=== PATIENT | female | born 1940 | race Caucasian/White ===

== ENCOUNTER 2018-04-05 20:33 | Observation (INO) ==
[2018-04-05] MEDS ORDERED: traMADol 50 MG TABLET PO PRN (22:41)
[2018-04-05] MEDS ORDERED: Acetaminophen 325 MG TABLET PO PRN (22:41)
[2018-04-05] MEDS ORDERED: Naloxone 0.4 MG/ML INJ IVP PRN (22:41)
--- NOTE | 2018-04-05 23:53 | Internal Med History&Physical ---
Date of Encounter: 04/06/18 Time of Encounter: 22:50 Internal Medicine - H&P: HPI Chief complaint: Abdominal pain and bright red blood per rectum History of present illness: Ms. TOURE is a 78 year old female with pmh of hypertension, hypothyroidism presenting with complaints of left lower abdominal pain starting around 6pm last night. Patient has had this pain intermittently for a while but she says she has never had it to the severity of last night. Pain stared last night around 6pm, was dull but severe and accompanied with a lower abdominal fullness. She says she went to the bathroom this am and noticed copious amounts of bright red blood in stool which she has never experienced before. She only had that one episode of blood bowel movement. She denies any fevers, chills , nausea or vomiting. She admits to change in bowel pattern with stools being thinner intermittently. when she went to the ER, a CT scan was done showing maaslike thikening of the cecum with mild inflammatory changes, as well as an underlying mass that could not be excluded. She was given levaquin and flagyl and transferred here for further management. Last colonscopy was 5 years ago. Past Med Surg Social Fam HX - Past Medical History Medical history: hypertension - Past Surgical History Surgical History: hysterectomy, orthopedic, other - Social History Smoking Status: Never smoker Alcohol use: none Drug use: none Internal Medicine - H&P: Meds 3 Allergy/AdvReac Type Severity Reaction Status Date / Time No Known Allergies Allergy Verified 04/05/18 23:50 All Systems PM: A 10-system review of systems was performed and is negative for pertinent findings except as documented above in the HPI. - Constitutional Constitutional: no chills, no fever(s), no night sweats - EENT Eyes: no change in vision, no discharge, no pain, no photophobia Ears: no ear discharge, no ear pain, no tinnitus Nose, mouth and throat: no dysphagia, no nasal discharge, no neck pain, no sore throat - Cardiovascular Cardiovascular ROS IM: no chest pain, no diaphoresis, no dyspnea, no lightheadedness, no palpitations, no syncope - Respiratory Respiratory: no cough, no dyspnea, no wheezing, no excessive phlegm production - Gastrointestinal Gastrointestinal: abdominal pain, change in stool character, diarrhea, hematochezia, no hematemesis, no melena, no nausea, no vomiting - Genitourinary Genitourinary: no change in urinary stream, no dysuria, no flank pain, no hematuria - Musculoskeletal Musculoskeletal ROS IM: no numbness, no tingling - Integumentary Integumentary IM: no rash, no unusual bruising - Neurological Neurological ROS: no confusion, no convulsions, no focal weakness, no numbness, no tingling, no tremor(s) - Hematologic/Lymphatic Hematologic/Lymphatic: no easy bruising - Constitutional Vitals: Temp Pulse Resp BP Pulse Ox 98.2 F 70 16 134/69 95 04/05/18 22:35 04/05/18 22:35 04/05/18 22:35 04/05/18 22:35 04/05/18 22:35 - Head Head exam: Present: atraumatic, normocephalic - Eye Eye exam: Present: PERRL, conjuntiva pink, sclera anicteric Pupils: Present: PERRL - Neck Neck exam general surgery: Present: supple, trachea midline. Absent: lymphadenopathy - Respiratory Respiratory exam: Present: CTAB. Absent: accessory muscle use, rales, rhonchi, wheezes - Cardiovascular Cardiovascular exam: Present: RRR, +S1, +S2. Absent: diastolic murmur, gallop, rubs, systolic murmur - GI/Abdominal GI/Abdominal exam: Present: normal bowel sounds, soft, tenderness, no peritoneal signs. Absent: distended Additional comments: tenderness to deep palpation - Extremities Exam Extremities exam: Present: warm, radial pulses palpable and symmetrical. Absent : calf tenderness, cyanotic, pedal edema - Neurological Exam Neurological exam: Present: CN II-XII intact, oriented X3, no focal deficits. Absent: pronater drift, facial droop, speech deficit - Skin Skin exam: Present: dry, intact Internal Med - H&P Results - Labs CBC & Chem 7: 04/06/18 03:14 04/06/18 03:14 - Assessment and plan (1) Colitis Current Visit: Yes Status: Acute Assessment and plan: Pt has colitis with bright red blood per rectum. Had only one episode of BRBPR and is hemodynamically stable.Hemglobin was 12.6 in ED , will monitor CBC. Start on ciprofloxacin and flagyl. GI can be consulted in am for possible colonoscopy inpt vs outpatient and further management. Follow up stool studies (2) Colonic mass Current Visit: Yes Status: Acute Assessment and plan: Noted on CT scan. Pt also notes changes in the character of her stool intermittently with noted thin stools. Does not admit to weight loss. Plan for GI eval and colonoscopy (3) Hypertension Current Visit: Yes Status: Acute Assessment and plan: On amlodipine, losartan/HCTZ Qualifiers: Hypertension type: essential hypertension Qualified Code(s): I10 - Essential (primary) hypertension (4) Hypothyroidism Current Visit: Yes Status: Acute Assessment and plan: Continue levothyroxine Qualifiers: Qualified Code(s): E03.9 - Hypothyroidism, unspecified (5) DVT prophylaxis Current Visit: Yes Status: Acute Assessment and plan: SCDs - Time Spent With Patient Total time spent is greater than 50% in coordination of care (as documented) at patient's floor/unit and/or counseling patient:
[2018-04-06] MEDS ORDERED: MetroNIDAZOLE 500 MG/100 ML 500 MG/100 ML BAG IVPB SCH
[2018-04-06] MEDS: 0.9 % Sodium Chloride 1,000 ML IVC SCH ×3 (00:17→23:29)
[2018-04-06] MEDS: MetroNIDAZOLE 500 MG/100 ML 500 MG/100 ML BAG IVPB SCH ×3 (01:39→17:23)
[2018-04-06 04:15] LABS: Basophils % 0.2 %; Eosinophils # 0.1 K/mcL (0.0-0.6); Eosinophils % 0.7 %; Hematocrit 35.8 % (35.3-44.9); Hemoglobin 12.1 g/dL (11.5-15.4); Immature Granulocytes % 0.3 % (0-4); Lymphocytes # 1.2 K/mcL (0.6-4.6); Lymphocytes % 12.6 %; Mean Corpuscular HGB Conc 33.8 g/dL (31.6-35.5); Mean Corpuscular Hemoglobin 28.3 pg (28.0-33.3); Mean Corpuscular Volume 83.6 fL (83.0-100.0); Mean Platelet Volume 10.4 fL (9.4-12.4); Monocytes # 0.7 K/mcL (0.0-1.3); Monocytes % 7.4 %; Neutrophils # 7.8 K/mcL (1.6-8.9); Platelet Count 153 K/mcL (140-400); Red Blood Count 4.28 M/mcL (3.82-4.97); Red Cell Distribution Width 13.7 % (11.5-14.5); Segmented Neutrophils % 78.8 %
[2018-04-06 04:31] LABS: BUN/Creatinine Ratio 13 (6-26); Blood Urea Nitrogen 10 mg/dL (8-23); Calcium 8.5 mg/dL (8.6-10.3); Carbon Dioxide 25 mEq/L (23-29); Chloride 105 mEq/L (98-107); Glucose 111 mg/dL (70-105); Magnesium 1.8 mg/dL (1.6-2.6); Osmolality,Calculated 280 (280-300); Phosphorous 3.3 mg/dL (2.7-4.5); Potassium 3.4 mEq/L (3.5-5.1); Sodium 135 mEq/L (136-145); eGFR For Non-African Americans > 60 (> 60)
[2018-04-06] MEDS ORDERED: amLODIPine 5 MG TABLET PO SCH (09:00)
[2018-04-06] MEDS ORDERED: Aspirin 81 MG TAB.CHEW PO SCH (09:00)
[2018-04-06] MEDS ORDERED: hydroCHLOROthiazide 25 MG TABLET PO SCH (09:00)
--- NOTE | 2018-04-06 13:20 | Internal Med Progress Note ---
Hospitalist Progress Note - Encounter Date of Encounter: 04/06/18 Time of Encounter: 11:00 - Subjective Interval History: patient is feeling better sicne admission she reports no melena, hematochezia, N/V/D, melena sicne admission denies abdominal pain, dysuria, fever, chills. she had colonoscopy 5 years ago and was told to go back for a colonoscopy after 3 years due to polyps but she was unable to follow up due to her condition ( recently ). - Exam Vitals: Temp Pulse Resp BP Pulse Ox 98.9 F 61 15 93/56 95 04/06/18 10:20 04/06/18 10:20 04/06/18 10:20 04/06/18 10:20 04/06/18 10:20 Exam: General: Patient is alert, oriented, no acute distress, Head: atraumatic, normocephalic, Eye: normal appearance, PERRL, no scleral icterus, no conjunctival injection ENT: mucous membranes moist, normal external ear exam Neck: normal inspection, trachea midline, full ROM, no carotid bruits Chest: normal inspection, symmetric chest rise Respiratory: Good respiratory effort. Bilateral breath sounds are clear without wheezing, crackles, or rhonchi. Cardiovascular: Regular rate and rhythm. s1 and s2 No clicks, rubs, gallops, or murmors. Abdomen: Bowel sounds present normoactive x-4 quadrants. Abdomen is soft, nondistended. no Epigastric tenderness. No guarding or rebound. No organomegaly noted, musculoskeletal: Spontaneously moving all extremities. no edema, no calf tenderness Skin: warm, dry, intact. Neuro: Alert and oriented x4. Sensation light touch intact. Cranial nerves 2- 12 is intact. Not aphasic, gait is steady, rapid hand movements intact, finger- to-nose intact, Psych: Patient's affect is normal - Assessment and Plan (1) BRBPR (bright red blood per rectum) Current Visit: Yes Status: Acute Assessment and Plan: ?internal hemorrhoids vs mass vs colitis vs angiodysplasia vs diverticular continue IVF hold All Antiplatelets and NSAIDS adn anticoagulation on cipro and flagyl surgery consulted - she would like colonoscopy by Dr. Bradshaw will hold all of anti hypertensives- BP is running low CBC Q6H type and cross stat Pt-PTT-INR stat guaiac (2) Colitis Current Visit: Yes Status: Acute Assessment and Plan: Ct scan done at outside facility showing masslike thickening of the cecum with mild inflammatory changes, as well as an underlying mass that could not be excluded. started on cipro, flagyl tolerating full liquid diet - will increase diet as tolerated she would like colonoscopy to be perfomed by Dr. Bradshaw with surgery - surgery consulted will continue IV hydration (3) Colonic mass Current Visit: Yes Status: Acute Assessment and Plan: Noted on CT scan. denies weight loss or B symptoms. was due for colonscopy 2 years ago obtain previous records surgery consulted for ?colonoscopy n patient with Dr. rBadshaw (4) Hypertension Current Visit: Yes Status: Acute Assessment and Plan: held all BP meds currently border line hypotensive (5) Hypothyroidism Current Visit: Yes Status: Acute Assessment and Plan: Continue levothyroxine (6) DVT prophylaxis Current Visit: Yes Status: Acute Assessment and Plan: scds DVT Prophylaxis: as above - Time Spent with Patient Total time spent is greater than 50% in coordination of care (as documented) at patient's floor/unit and/or counseling patient: Plan of Care Discussed with: patient Internal Medicine: Result - Labs CBC & Chem 7: 04/06/18 03:14 04/06/18 03:14 Labs: Short CBC 04/06/18 Range/Units 03:14 WBC 9.9 (4.3-11.1) K/mcL Hgb 12.1 (11.5-15.4) g/dL Hct 35.8 (35.3-44.9) % Plt Count 153 (140-400) K/mcL Neutrophils # 7.8 (1.6-8.9) K/mcL BMP 04/06/18 03:14 Sodium 135 L Potassium 3.4 L Chloride 105 Carbon Dioxide 25 BUN 10 Creatinine 0.80 Glucose 111 H Calcium 8.5 L Consult Discharge Plan - Plan Referrals: Nilesh Unger MD [Primary Care Provider] - (4) Hypertension Qualifiers: Hypertension type: essential hypertension Qualified Code(s): I10 - Essential (primary) hypertension (5) Hypothyroidism Qualifiers: Qualified Code(s): E03.9 - Hypothyroidism, unspecified
[2018-04-06 13:46] LABS: Basophils % 0.3 %; Eosinophils # 0.2 K/mcL (0.0-0.6); Eosinophils % 1.6 %; Hematocrit 39.2 % (35.3-44.9); Hemoglobin 12.9 g/dL (11.5-15.4); Immature Granulocytes % 0.2 % (0-4); Lymphocytes # 1.5 K/mcL (0.6-4.6); Lymphocytes % 14.8 %; Mean Corpuscular HGB Conc 32.9 g/dL (31.6-35.5); Mean Corpuscular Hemoglobin 28.2 pg (28.0-33.3); Mean Corpuscular Volume 85.6 fL (83.0-100.0); Mean Platelet Volume 10.1 fL (9.4-12.4); Monocytes # 0.8 K/mcL (0.0-1.3); Monocytes % 7.7 %; Neutrophils # 7.4 K/mcL (1.6-8.9); Platelet Count 164 K/mcL (140-400); Red Blood Count 4.58 M/mcL (3.82-4.97); Red Cell Distribution Width 13.8 % (11.5-14.5); Segmented Neutrophils % 75.4 %
[2018-04-06] MEDS ORDERED: Polyethylene Glycol 3350 255 GM POWDER PO ONE ×2 (14:12→15:06)
--- NOTE | 2018-04-06 14:16 | General Surgery Consult Note ---
<Nichelle Ibarra E - Last Filed: 04/06/18 14:13> Date of Encounter: 04/06/18 Time of Encounter: 14:14 Assessment and Plan (1) Colonic mass Current Visit: Yes Status: Acute Colonoscopy tomorrow morning for concerning mass in right colon Bowel prep starting tonight Clear liquid diet, NPO after midnight Monitor CBC, CMP for anemia CEA and PT/INT ordered Chest XR two view ordered Continue antibiotics as per primary (2) BRBPR (bright red blood per rectum) Current Visit: Yes Status: Acute see above History of Present Illness Consult date: 04/06/18 Reason for consult: other (Pt has had bright red blood per rectum since yesterday morning) Requesting physician: Jessica Haywood History of present illness: Ms. Sibley is an 78 year old female who presented to the ED for bright red blood per rectum. She states that yesterday morning she had a "whoosh" of bright red blood when she went to have a bowel movement. She was quite concerned about it. She has noticed a change in her stool consistency over the last two years that she describes as she has a normal bowel movement and then the caliper of the stool changes to thin and then it is followed by clear water like diarrhea that has fibers in it. She states she does not have any pain today but is aware of something that just does not feel right. She did have a slight cramping sensation yesterday morning before her bowel movement in her pelvis that she described as a dull aching type pain. Past Med Surg Social Fam HX - Past Medical History Medical history: hypertension - Past Surgical History Surgical History: hysterectomy, orthopedic, other - Social History Smoking Status: Never smoker Alcohol use: none Drug use: none Medications and Allergies Alendronate Sodium [Fosamax] 70 mg PO QWEEK 04/06/18 [History] Aspirin Enteric Coated [Aspirin EC] 81 mg PO DAILY 04/06/18 [History] Atenolol [Tenormin] 50 mg PO DAILY 04/06/18 [History] Levothyroxine [Synthroid] 125 mcg PO DAILY 04/06/18 [History] Losartan/Hydrochlorothiazide [Losartan-Hctz 100-12.5 mg Tab] 1 tab PO DAILY 12/19 [History] [place]-3 Fatty Acids [Fish Oil] 300 mg PO DAILY 04/06/18 [History] amLODIPine [Norvasc] 5 mg PO DAILY 04/06/18 [History] 3 Allergy/AdvReac Type Severity Reaction Status Date / Time No Known Allergies Allergy Verified 04/06/18 10:23 Review of Systems All systems PM: The remainder of the systems were reviewed and are negative - Cardiovascular no chest pain, no dyspnea, no palpitations - Respiratory no cough, no dyspnea, no dyspnea on exertion - Gastrointestinal as per [facility] General Surgery Exam Initial Vital Signs Temp Pulse Resp BP Pulse Ox 98.2 F 70 16 134/69 95 04/05/18 22:35 04/05/18 22:35 04/05/18 22:35 04/05/18 22:35 04/05/18 22:35 - General physical appearance well developed, well nourished - Respiratory normal expansion, normal respiratory effort, clear to auscultation - Cardiovascular Cardiovascular exam: Present: RRR, no murmurs/rubs/gallops - Abdomen Abdomen general surgery: Present: bowel sounds present, soft, non tender. Absent: organomegaly, guarding, rebound - Psychiatric Psychiatric general surgery: Present: A&Ox3 Exam Initial Vital Signs Temp Pulse Resp BP Pulse Ox 98.2 F 70 16 134/69 95 04/05/18 22:35 04/05/18 22:35 04/05/18 22:35 04/05/18 22:35 04/05/18 22:35 Results - Labs 04/06/18 13:38 04/06/18 03:14 Abnormal lab results Sodium 135 mEq/L (136-145) L 04/06/18 03:14 Potassium 3.4 mEq/L (3.5-5.1) L 04/06/18 03:14 Glucose 111 mg/dL (70-105) H 04/06/18 03:14 Calcium 8.5 mg/dL (8.6-10.3) L 04/06/18 03:14 Diabetes panel 04/06/18 Range/Units 03:14 Sodium 135 L (136-145) mEq/L Potassium 3.4 L (3.5-5.1) mEq/L Chloride 105 (98-107) mEq/L Carbon Dioxide 25 (23-29) mEq/L BUN 10 (8-23) mg/dL Creatinine 0.80 (0.60-1.20) mg/dL Glucose 111 H (70-105) mg/dL Calcium 8.5 L (8.6-10.3) mg/dL Calcium panel 04/06/18 Range/Units 03:14 Calcium 8.5 L (8.6-10.3) mg/dL Phosphorus 3.3 (2.7-4.5) mg/dL Pituitary panel 04/06/18 Range/Units 03:14 Sodium 135 L (136-145) mEq/L Potassium 3.4 L (3.5-5.1) mEq/L Chloride 105 (98-107) mEq/L Carbon Dioxide 25 (23-29) mEq/L BUN 10 (8-23) mg/dL Creatinine 0.80 (0.60-1.20) mg/dL Glucose 111 H (70-105) mg/dL Calcium 8.5 L (8.6-10.3) mg/dL Adrenal panel 04/06/18 Range/Units 03:14 Sodium 135 L (136-145) mEq/L Potassium 3.4 L (3.5-5.1) mEq/L Chloride 105 (98-107) mEq/L Carbon Dioxide 25 (23-29) mEq/L BUN 10 (8-23) mg/dL Creatinine 0.80 (0.60-1.20) mg/dL Glucose 111 H (70-105) mg/dL Calcium 8.5 L (8.6-10.3) mg/dL All other labs normal. Consult Discharge Plan - Plan Referrals: Nilesh Unger MD [Primary Care Provider] - <Jame Rhodes - Last Filed: 04/06/18 15:17> Date of Encounter: 04/06/18 Review of Systems All systems PM: The remainder of the systems were reviewed and are negative General Surgery Exam Initial Vital Signs Temp Pulse Resp BP Pulse Ox 98.2 F 70 16 134/69 95 04/05/18 22:35 04/05/18 22:35 04/05/18 22:35 04/05/18 22:35 04/05/18 22:35 Exam Initial Vital Signs Temp Pulse Resp BP Pulse Ox 98.2 F 70 16 134/69 95 04/05/18 22:35 04/05/18 22:35 04/05/18 22:35 04/05/18 22:35 04/05/18 22:35 Results - Labs 04/06/18 13:38 04/06/18 03:14 Abnormal lab results PT 13.2 Seconds (9.4-12.1) H 04/06/18 14:25 Sodium 135 mEq/L (136-145) L 04/06/18 03:14 Potassium 3.4 mEq/L (3.5-5.1) L 04/06/18 03:14 Glucose 111 mg/dL (70-105) H 04/06/18 03:14 Calcium 8.5 mg/dL (8.6-10.3) L 04/06/18 03:14 Diabetes panel 04/06/18 Range/Units 03:14 Sodium 135 L (136-145) mEq/L Potassium 3.4 L (3.5-5.1) mEq/L Chloride 105 (98-107) mEq/L Carbon Dioxide 25 (23-29) mEq/L BUN 10 (8-23) mg/dL Creatinine 0.80 (0.60-1.20) mg/dL Glucose 111 H (70-105) mg/dL Calcium 8.5 L (8.6-10.3) mg/dL Calcium panel 04/06/18 Range/Units 03:14 Calcium 8.5 L (8.6-10.3) mg/dL Phosphorus 3.3 (2.7-4.5) mg/dL Pituitary panel 04/06/18 Range/Units 03:14 Sodium 135 L (136-145) mEq/L Potassium 3.4 L (3.5-5.1) mEq/L Chloride 105 (98-107) mEq/L Carbon Dioxide 25 (23-29) mEq/L BUN 10 (8-23) mg/dL Creatinine 0.80 (0.60-1.20) mg/dL Glucose 111 H (70-105) mg/dL Calcium 8.5 L (8.6-10.3) mg/dL Adrenal panel 04/06/18 Range/Units 03:14 Sodium 135 L (136-145) mEq/L Potassium 3.4 L (3.5-5.1) mEq/L Chloride 105 (98-107) mEq/L Carbon Dioxide 25 (23-29) mEq/L BUN 10 (8-23) mg/dL Creatinine 0.80 (0.60-1.20) mg/dL Glucose 111 H (70-105) mg/dL Calcium 8.5 L (8.6-10.3) mg/dL All other labs normal. - Attending Attestation patient seen and examined. i have reviewed all imaging, labs,and notes. I agree with the above assessment and plan and wish to add the following... 78F wit 2 day history of rectal bleeding and a several year history of change in bowel habits (both in calliber and character). A CT scan was obtained which was reviewed and interpreted by me, which demonstrated a nebulus irregularity in the right colon with associated fat stranding. Her history is consistent with a strong possibility of colon cancer. I will plan for a colonoscopy in AM with plans for biopsy to confirm the findings and my suspicions. Discussed with patient and her son. No need for antibiotics at present. Recommend CEA
[2018-04-06 14:52] LABS: INR 1.2; Prothrombin Time 13.2 Seconds (9.4-12.1)
[2018-04-06 14:55] LABS: Activated Partial Thrombo Time 33.6 Seconds (26.0-36.0)
[2018-04-06 19:15] LABS: Basophils % 0.3 %; Eosinophils # 0.2 K/mcL (0.0-0.6); Eosinophils % 2.4 %; Hematocrit 36.4 % (35.3-44.9); Hemoglobin 12.3 g/dL (11.5-15.4); Immature Granulocytes % 0.3 % (0-4); Lymphocytes # 1.3 K/mcL (0.6-4.6); Lymphocytes % 14.5 %; Mean Corpuscular HGB Conc 33.8 g/dL (31.6-35.5); Mean Corpuscular Hemoglobin 28.5 pg (28.0-33.3); Mean Corpuscular Volume 84.3 fL (83.0-100.0); Mean Platelet Volume 10.2 fL (9.4-12.4); Monocytes # 0.8 K/mcL (0.0-1.3); Monocytes % 9.4 %; Neutrophils # 6.4 K/mcL (1.6-8.9); Platelet Count 168 K/mcL (140-400); Red Blood Count 4.32 M/mcL (3.82-4.97); Red Cell Distribution Width 13.7 % (11.5-14.5); Segmented Neutrophils % 73.1 %
[2018-04-06 19:35] LABS: Adenovirus F 40/41 PCR Not detected (Not detect); Astrovirus PCR Not detected (Not detect); C.difficile Toxin A/B by PCR Not detected (Not detect); Campylobacter by PCR Not detected (Not detect); Cryptosporidium by PCR Not detected (Not detect); Cyclospora cayetanensis PCR Not detected (Not detect); E. coli O157 by PCR Not detected (Not detect); Entamoeba histolytica PCR Not detected (Not detect); Enteroaggregative E.coli(EAEC) Not detected (Not detect); Enteropathogenic E.coli(EPEC) Not detected (Not detect); Enterotoxigenic E.coli (ETEC) Not detected (Not detect); Giardia lamblia PCR Not detected (Not detect); Norovirus GI/GII PCR Not detected (Not detect); Plesiomonas shigelloides PCR Not detected (Not detect); Rotavirus A PCR Not detected (Not detect); Salmonella PCR Not detected (Not detect); Sapovirus PCR Not detected (Not detect); Shig/EnteroinvasiveE coli EIEC Not detected (Not detect); Shigalike tox-prod E coli STEC Not detected (Not detect); Vibrio PCR Not detected (Not detect); Vibrio cholerae PCR Not detected (Not detect); Yersinia enterocolitica PCR Not detected (Not detect)
[2018-04-06] MEDS ORDERED: Metoclopramide 10 MG/2 ML VIAL IVP PRN (20:27)
[2018-04-07] MEDS: MetroNIDAZOLE 500 MG/100 ML 500 MG/100 ML BAG IVPB SCH ×3 (01:25→17:20)
[2018-04-07] MEDS: 0.9 % Sodium Chloride 1,000 ML IVC SCH ×2 (05:22→20:05)
[2018-04-07 05:44] LABS: BUN/Creatinine Ratio 7 (6-26); Blood Urea Nitrogen 5 mg/dL (8-23); Calcium 8.1 mg/dL (8.6-10.3); Carbon Dioxide 24 mEq/L (23-29); Chloride 109 mEq/L (98-107); Glucose 112 mg/dL (70-105); Osmolality,Calculated 284 (280-300); Potassium 3.2 mEq/L (3.5-5.1); Sodium 138 mEq/L (136-145); eGFR For Non-African Americans > 60 (> 60)
[2018-04-07 07:12] LABS: Basophils % 0.5 %; Eosinophils # 0.2 K/mcL (0.0-0.6); Eosinophils % 3.6 %; Hematocrit 34.8 % (35.3-44.9); Hemoglobin 11.6 g/dL (11.5-15.4); Immature Granulocytes % 0.4 % (0-4); Lymphocytes # 0.9 K/mcL (0.6-4.6); Lymphocytes % 16.5 %; Mean Corpuscular HGB Conc 33.3 g/dL (31.6-35.5); Mean Corpuscular Hemoglobin 28.2 pg (28.0-33.3); Mean Corpuscular Volume 84.5 fL (83.0-100.0); Mean Platelet Volume 10.7 fL (9.4-12.4); Monocytes # 0.5 K/mcL (0.0-1.3); Platelet Count 136 K/mcL (140-400); Red Blood Count 4.12 M/mcL (3.82-4.97); Red Cell Distribution Width 13.5 % (11.5-14.5)
[2018-04-07] MEDS ORDERED: *HR* Midazolam HCl 5 MG/5 ML VIAL IVP ONE (07:53)
[2018-04-07] MEDS ORDERED: *HR* FentaNYL (PF) 100 MCG/2 ML VIAL ONE (07:53)
[2018-04-07] MEDS ORDERED: 0.9 % Sodium Chloride 1,000 ML IVC SCH (08:00)
[2018-04-07] MEDS ORDERED: Simethicone 40 MG/0.6 ML MLS IR ONE (08:01)
[2018-04-07] MEDS ORDERED: *HR* FentaNYL (PF) 100 MCG/2 ML VIAL IVP ONE (08:01)
[2018-04-07] MEDS ORDERED: *HR* Promethazine 25 MG/ML VIAL IVP ONE (08:01)
--- NOTE | 2018-04-07 08:01 | Pre-Sedation Evaluation ---
Pre-sedation evaluation - Pre-sedation checklist Date of procedure: 04/07/18 Procedure: EGD, colonoscopy Recent Vitals: Last Vital Signs Temp 98.3 F 04/07/18 07:57 Pulse 81 04/07/18 06:49 Resp 16 04/07/18 06:49 BP 106/81 04/07/18 06:49 Pulse Ox 95 04/07/18 06:49 H&P (including ROS) documented in medical record: Yes Dietary Status: NPO after Midnight Possible difficult airway: No ASA Classification *see protocol: CLASS II-Mild systemic disease Plan of Care: Pt appropriate candidate for procedure/moderate/conscious sedation , Risks/benefits of procedure/sedation discussed w/ patient/family Cardiac Registry (Cardio Only) - Functional Capacity - Clincal Frailty Scale
[2018-04-07] MEDS: *HR* Midazolam HCl 5 MG/5 ML VIAL IVP ONE ×3 (08:06→08:38)
[2018-04-07] MEDS ORDERED: Tetracaine/Benzocaine/Butamben 200MG/SPRAY (100SPY/BOT) MM ONE (08:14)
--- NOTE | 2018-04-07 11:52 | General Surgery Progress Note ---
Date of Encounter: 04/07/18 Time of Encounter: 11:49 - Assessment and Plan (1) BRBPR (bright red blood per rectum) Current Visit: Yes Status: Acute 78F with LGIB s/p EGD, colonoscopy; positive for diverticulosis; possible ischemia; diet as tolerated activity as tolerated trend h/h no acute surgery at present, unless clinical status begins to decline will cont to follow Subjective Patient reports: no new complaints Objective Vital Signs - Last 8 Hours Temp Pulse Resp BP Pulse Ox 04/07/18 10:25 98.1 F 75 15 103/61 95 04/07/18 09:01 90 22 106/58 96 04/07/18 08:56 89 14 112/52 95 04/07/18 08:51 96 12 122/71 96 04/07/18 08:46 99 9 130/89 94 04/07/18 08:41 95 21 120/61 96 04/07/18 08:36 96 10 115/58 96 04/07/18 08:31 96 18 125/76 96 04/07/18 08:26 113 14 145/74 91 04/07/18 08:21 107 16 139/78 90 04/07/18 08:16 105 14 151/80 89 04/07/18 08:11 99 20 162/89 90 04/07/18 08:06 81 18 125/58 95 04/07/18 07:57 98.3 F 70 16 126/56 96 04/07/18 06:49 98.1 F 81 16 106/81 95 Intake and Output 04/06/18 04/07/18 04/07/18 23:59 07:59 15:59 Intake Total 300 / 300 1100 / 1100 60 / 60 Output Total 700 / 700 0 / 0 100 / 100 Balance -400 / -400 1100 / 1100 -40 / -40 Intake: IV Fluids 300 / 300 1100 / 1100 0.9 % Sodium Chloride 1,000 ML 1000 / 1000 @ 100 mls/hr IVC .Q10H ANGIE Rx#: [id number] Cipro Premix 400 MG/200 ML 400 200 / 200 mg In 200 ml @ 200 mls/hr IVPB Q12HR ANGIE Rx#:[id number] Flagyl Premix 500 MG/100 ML 500 100 / 100 100 / 100 mg In 100 ml @ 100 mls/hr IVPB Q8H ANGIE Rx#:[id number] Oral 0 / 0 0 / 0 60 / 60 Output: Urine 0 / 0 0 / 0 100 / 100 Stool 700 / 700 Other: Meal NPO BREAKFAST Stool Size Large Moderate Stool Consistency liquid loose liquid Stool Color Yellow # Voids 1 # Bowel Movements 0 # Bowel Movement Diapers 1 Blood Glucose* 134 - General physical appearance no distress - Respiratory normal expansion, normal respiratory effort - Cardiovascular Cardiovascular exam: Present: RRR - Abdomen Abdomen: Present: soft, non tender - Neurologic CN 2-12 grossly intact - Labs 04/07/18 04:40 04/07/18 04:40 Diabetes panel 04/07/18 Range/Units 04:40 Sodium 138 (136-145) mEq/L Potassium 3.2 L (3.5-5.1) mEq/L Chloride 109 H (98-107) mEq/L Carbon Dioxide 24 (23-29) mEq/L BUN 5 L (8-23) mg/dL Creatinine 0.69 (0.60-1.20) mg/dL Glucose 112 H (70-105) mg/dL Calcium 8.1 L (8.6-10.3) mg/dL Calcium panel 04/07/18 Range/Units 04:40 Calcium 8.1 L (8.6-10.3) mg/dL Pituitary panel 04/07/18 Range/Units 04:40 Sodium 138 (136-145) mEq/L Potassium 3.2 L (3.5-5.1) mEq/L Chloride 109 H (98-107) mEq/L Carbon Dioxide 24 (23-29) mEq/L BUN 5 L (8-23) mg/dL Creatinine 0.69 (0.60-1.20) mg/dL Glucose 112 H (70-105) mg/dL Calcium 8.1 L (8.6-10.3) mg/dL Adrenal panel 04/07/18 Range/Units 04:40 Sodium 138 (136-145) mEq/L Potassium 3.2 L (3.5-5.1) mEq/L Chloride 109 H (98-107) mEq/L Carbon Dioxide 24 (23-29) mEq/L BUN 5 L (8-23) mg/dL Creatinine 0.69 (0.60-1.20) mg/dL Glucose 112 H (70-105) mg/dL Calcium 8.1 L (8.6-10.3) mg/dL - VTE Documentation of Mechanical Device: Intermittent pneumatic compression device Consult Discharge Plan - Plan Referrals: Nilesh Unger MD [Primary Care Provider] -
--- NOTE | 2018-04-07 15:49 | Internal Med Progress Note ---
Hospitalist Progress Note - Encounter Date of Encounter: 04/07/18 Time of Encounter: 11:00 - Subjective Interval History: s/p colonoscopy adn feels drowsy tolerated clear liquid diet increased diet to full liquids she reports no melena, hematochezia, N/V/D, melena since admission denies abdominal pain, dysuria, fever, chills. - Exam Vitals: Temp Pulse Resp BP Pulse Ox 97.5 F L 72 15 117/69 97 04/07/18 14:38 04/07/18 14:38 04/07/18 14:38 04/07/18 14:38 04/07/18 14:38 Exam: General: Patient is alert, oriented, no acute distress, Head: atraumatic, normocephalic, Eye: normal appearance, PERRL, no scleral icterus, no conjunctival injection ENT: mucous membranes moist, normal external ear exam Neck: normal inspection, trachea midline, full ROM, no carotid bruits Chest: normal inspection, symmetric chest rise Respiratory: Good respiratory effort. Bilateral breath sounds are clear without wheezing, crackles, or rhonchi. Cardiovascular: Regular rate and rhythm. s1 and s2 No clicks, rubs, gallops, or murmors. Abdomen: Bowel sounds present normoactive x-4 quadrants. Abdomen is soft, nondistended. no Epigastric tenderness. No guarding or rebound. No organomegaly noted, musculoskeletal: Spontaneously moving all extremities. no edema, no calf tenderness Skin: warm, dry, intact. Neuro: Alert and oriented x4. Sensation light touch intact. Cranial nerves 2- 12 is intact. Not aphasic, gait is steady, rapid hand movements intact, finger- to-nose intact, Psych: Patient's affect is normal - Assessment and Plan (1) BRBPR (bright red blood per rectum) Current Visit: Yes Status: Acute Assessment and Plan: s/p colonoscopy positive for diverticulosis; possible ischemia hold All Antiplatelets and NSAIDS and anticoagulation was on cipro and flagyl- will consider to Dc if she remains afebrile surgery consulted - she would like colonoscopy by Dr. Bradshaw will hold all of anti hypertensives- BP is running low CBC daily (2) Colitis Current Visit: Yes Status: Acute Assessment and Plan: Ct scan done at outside facility showing mass like thickening of the cecum with mild inflammatory changes, as well as an underlying mass that could not be excluded. started on cipro, flagyl colonoscopy ? ischemia (3) Hypertension Current Visit: Yes Status: Acute Assessment and Plan: held all BP meds currently border line hypotensive (4) Hypothyroidism Current Visit: Yes Status: Acute Assessment and Plan: Continue levothyroxine (5) DVT prophylaxis Current Visit: Yes Status: Acute Assessment and Plan: scds DVT Prophylaxis: scds - Time Spent with Patient Total time spent is greater than 50% in coordination of care (as documented) at patient's floor/unit and/or counseling patient: 25 - 35 minutes Plan of Care Discussed with: patient Internal Medicine: Result - Labs CBC & Chem 7: 04/07/18 04:40 04/07/18 04:40 Labs: Short CBC 04/06/18 04/07/18 Range/Units 18:57 04:40 WBC 8.8 5.6 (4.3-11.1) K/mcL Hgb 12.3 11.6 (11.5-15.4) g/dL Hct 36.4 34.8 L (35.3-44.9) % Plt Count 168 136 L (140-400) K/mcL Neutrophils # 6.4 4.0 (1.6-8.9) K/mcL BMP 04/07/18 04:40 Sodium 138 Potassium 3.2 L Chloride 109 H Carbon Dioxide 24 BUN 5 L Creatinine 0.69 Glucose 112 H Calcium 8.1 L - ABG Interpretation ABG results: PT/INR, D-dimer PT 13.2 Seconds (9.4-12.1) H 04/06/18 14:25 - Impressions Impressions Chest X-Ray 04/06/18 14:28 IMPRESSION: No acute cardiopulmonary disease. D/ / 04/06/2018 15:22:55 Staci Ireland MD / [facility] Interpreting Provider: Staci Ireland MD - VTE Documentation of Mechanical Device: Intermittent pneumatic compression device Consult Discharge Plan - Plan Referrals: Nilesh Unger MD [Primary Care Provider] - (3) Hypertension Qualifiers: Hypertension type: essential hypertension Qualified Code(s): I10 - Essential (primary) hypertension
--- NOTE | 2018-04-07 16:21 | Discharge Summary ---
- NOTES TO OUTPATIENT PROVIDER Notes to Outpatient Provider: on pathology report from the colonoscopy. follow up with GI as OP Orders not resulted at time of discharge: Pending orders 04/07/18 09:05 Surgical Pathology [PTH] Routine 04/08/18 04:00 BMP [Basic Metabolic Panel] AM 0400 CBC [Complete Blood Count] [HEME] AM 0400 Date of Encounter: 04/08/18 Time of Encounter: 08:19 - Discharge Diagnosis (1) BRBPR (bright red blood per rectum) Priority: Primary Status: Acute (2) Colitis Priority: Secondary Status: Acute (3) Hypertension Priority: Secondary Status: Acute Qualifiers: Hypertension type: essential hypertension Qualified Code(s): I10 - Essential (primary) hypertension (4) Hypothyroidism Priority: Secondary Status: Acute Qualifiers: Hypothyroidism type: acquired Qualified Code(s): E03.9 - Hypothyroidism, unspecified (5) DVT prophylaxis Priority: Secondary Status: Acute Hospital course: Ms. TOURE is a 78 year old female who presented to the ED for bright red blood per rectum. She states that the day before admission morning she had a "whoosh" of bright red blood when she went to have a bowel movement. she visited ED in an outside facility and CT scan was done showing masslike thickening of the cecum with mild inflammatory changes, as well as an underlying mass that could not be excluded. Her last colonoscopy was 5 years ago and she was told to have repeated colonoscopy after 3 years but due to her 's condition she was unable to follow-up for colonoscopy. H/h followed and remained stable. She was started on IV fluids, IV antibiotics, surgery was consulted and she is status post colonoscopy on April 07. colonoscopy showed one 6 mm polyp in the sigmoid colon, removed with cold snare and biopsied. Diverticulosis in the sigmoid colon. psuedomembranous enterocolitis. Localized mild inflammation was found in the cecum secondary to colitis which was biopsied. Mild diverticulosis in the sigmoid colon. There was no evidence of diverticular bleeding. One 6 mm nonbleeding polyp in the sigmoid colon, removed and biopsied. endoscopy showed normal esophagus stomach and examined duodenum. She was started on clear liquid diets and she tolerated so diet was increased. she was told to follow up on the pathology reports. - Time Spent with Patient Total time spent providing and/or coordinating discharge services: Less than 30 minutes - Discharge Medications Prescriptions: Ciprofloxacin [Cipro] 500 mg PO BID 6 Days #12 tablet MetroNIDAZOLE [Flagyl ER] 750 mg PO BID 6 Days #12 tablet.er Home Medications: Alendronate Sodium [Fosamax] 70 mg PO QWEEK 04/06/18 [History] Aspirin Enteric Coated [Aspirin EC] 81 mg PO DAILY 04/06/18 [History] Atenolol [Tenormin] 50 mg PO DAILY 04/06/18 [History] Levothyroxine [Synthroid] 125 mcg PO DAILY 04/06/18 [History] Losartan/Hydrochlorothiazide [Losartan-Hctz 100-12.5 mg Tab] 1 tab PO DAILY 12/19 [History] [place]-3 Fatty Acids [Fish Oil] 300 mg PO DAILY 04/06/18 [History] amLODIPine [Norvasc] 5 mg PO DAILY 04/06/18 [History] Ciprofloxacin [Cipro] 500 mg PO BID 6 Days #12 tablet 04/08/18 [Rx] MetroNIDAZOLE [Flagyl ER] 750 mg PO BID 6 Days #12 tablet.er 04/08/18 [Rx] Allergies/Adverse Reactions: 3 Allergy/AdvReac Type Severity Reaction Status Date / Time No Known Allergies Allergy Verified 04/06/18 10:23 Date of admission: 04/05/18 22:41 Primary care physician: Nilesh Unger MD Consults: 04/06/18 13:10 Consult to Surgery [CONS] Routine Consulting Provider: Surgery [facility] Reason for Consult: BRBPR, Ct showoing mass in cecum Call Completed: Yes - Constitutional Vitals: Temp Pulse Resp BP Pulse Ox 97.5 F L 72 15 117/69 97 04/07/18 14:38 04/07/18 14:38 04/07/18 14:38 04/07/18 14:38 04/07/18 14:38 Exam: General: Patient is alert, oriented, no acute distress, Head: atraumatic, normocephalic, Eye: normal appearance, PERRL, no scleral icterus, no conjunctival injection ENT: mucous membranes moist, normal external ear exam Neck: normal inspection, trachea midline, full ROM, no carotid bruits Chest: normal inspection, symmetric chest rise Respiratory: Good respiratory effort. Bilateral breath sounds are clear without wheezing, crackles, or rhonchi. Cardiovascular: Regular rate and rhythm. s1 and s2 No clicks, rubs, gallops, or murmors. Abdomen: Bowel sounds present normoactive x-4 quadrants. Abdomen is soft, nondistended. no Epigastric tenderness. No guarding or rebound. No organomegaly noted, musculoskeletal: Spontaneously moving all extremities. no edema, no calf tenderness Skin: warm, dry, intact. Neuro: Alert and oriented x4. Sensation light touch intact. Cranial nerves 2- 12 is intact. Not aphasic, gait is steady, rapid hand movements intact, finger- to-nose intact, Psych: Patient's affect is normal - Patient Status Disposition: Home, Self-Care Condition: Fair Overall status at discharge: patient is progressing back to baseline - Discharge Instructions Follow Up With: Nilesh Unger MD [Primary Care Provider] - Selvin Monroy DO [Partnered Physician] - - Diet and Activity Activity: increase activity as tolerated Diet: advance to your usual diet - VTE Documentation of Mechanical Device: Intermittent pneumatic compression device
[2018-04-08] MEDS: MetroNIDAZOLE 500 MG/100 ML 500 MG/100 ML BAG IVPB SCH (02:09)
[2018-04-08 04:12] LABS: Basophils % 0.4 %; Eosinophils # 0.2 K/mcL (0.0-0.6); Eosinophils % 4.4 %; Hematocrit 32.5 % (35.3-44.9); Hemoglobin 10.8 g/dL (11.5-15.4); Immature Granulocytes % 0.2 % (0-4); Lymphocytes % 18.2 %; Mean Corpuscular HGB Conc 33.2 g/dL (31.6-35.5); Mean Corpuscular Hemoglobin 27.7 pg (28.0-33.3); Mean Corpuscular Volume 83.3 fL (83.0-100.0); Mean Platelet Volume 10.2 fL (9.4-12.4); Monocytes # 0.5 K/mcL (0.0-1.3); Monocytes % 8.7 %; Neutrophils # 3.6 K/mcL (1.6-8.9); Platelet Count 148 K/mcL (140-400); Red Cell Distribution Width 13.8 % (11.5-14.5); Segmented Neutrophils % 68.1 %
[2018-04-08 04:34] LABS: BUN/Creatinine Ratio 5 (6-26); Blood Urea Nitrogen 3 mg/dL (8-23); Calcium 7.8 mg/dL (8.6-10.3); Carbon Dioxide 25 mEq/L (23-29); Chloride 110 mEq/L (98-107); Glucose 109 mg/dL (70-105); Osmolality,Calculated 283 (280-300); Potassium 3.7 mEq/L (3.5-5.1); Sodium 138 mEq/L (136-145); eGFR For Non-African Americans > 60 (> 60)
[2018-04-08 07:37] VITALS: BP 145/67
--- NOTE | 2018-04-08 08:29 | General Surgery Progress Note ---
<Nichelle Ibarra E - Last Filed: 04/08/18 08:23> Date of Encounter: 04/08/18 Time of Encounter: 08:23 - Assessment and Plan (1) Colonic mass Current Visit: Yes Status: Acute Endoscopy 04/07/18 Dr. Rhodes Impression: normal esophagus Normal stomach normal examined duodenum No specimens collected Colonoscopy 04/07/18 Dr. Rhodes Impression: One 6mm polyp in sigmoid colon, removed with a cold snare. Resected and retrieved Diverticulitis in the sigmoid colon Psuedomembranous enterocolitis Localized mild inflammation was found in phylicia cecum secondary to collitis. Biopsied. Milld diverticulosis in the sigmoid colon. There was no evidence of diverticular bleeding Advance diet as tolerated Follow up on Pathology as Outpatient Ok to discharge at this time Surgery will sign off at this time, thank you for involving us in this patient' s care, please feel free to contact us with any questions. (2) BRBPR (bright red blood per rectum) Current Visit: Yes Status: Acute see above Subjective Patient reports: feels better, pain is less, tolerating a regular diet, other ( Stated she is feeling much better but has a sore throat after endoscopy yesterday. Had a small amount of lose stool this morning. ) Objective Vital Signs - Last 8 Hours Temp Pulse Resp BP Pulse Ox 04/08/18 07:25 98.6 F 81 16 145/67 96 04/08/18 04:12 98.3 F 90 17 112/54 94 Intake and Output 04/07/18 04/08/18 04/08/18 23:59 07:59 15:59 Intake Total 874 / 874 200 / 200 Output Total 300 / 300 900 / 900 Balance 574 / 574 -700 / -700 Intake: IV Fluids 874 / 874 0.9 % Sodium Chloride 1,000 ML 574 / 574 @ 100 mls/hr IVC .Q10H ANGIE Rx#: [id number] Cipro Premix 400 MG/200 ML 400 200 / 200 mg In 200 ml @ 200 mls/hr IVPB Q12HR ANGIE Rx#:[id number] Flagyl Premix 500 MG/100 ML 500 100 / 100 mg In 100 ml @ 100 mls/hr IVPB Q8H ANGIE Rx#:[id number] Oral 0 / 0 200 / 200 Output: Urine 900 / 900 Urine/Stool Mix 300 / 300 Other: # Bowel Movements 0 Weight 73 kg Patient Weight 04/08/18 23:59 Weight 73 kg - General physical appearance well developed, well nourished, no distress - Respiratory normal expansion, normal respiratory effort, clear to auscultation - Cardiovascular Cardiovascular exam: Present: RRR, no murmurs/rubs/gallops - Abdomen Abdomen: Present: bowel sounds present, soft, non tender - Integumentary no rash, no growths, no abnormal pigmentation - Musculoskeletal normal posture - Psychiatric oriented to time, oriented to person, oriented to place - Labs 04/08/18 03:45 04/08/18 03:45 Diabetes panel 04/08/18 Range/Units 03:45 Sodium 138 (136-145) mEq/L Potassium 3.7 (3.5-5.1) mEq/L Chloride 110 H (98-107) mEq/L Carbon Dioxide 25 (23-29) mEq/L BUN 3 L (8-23) mg/dL Creatinine 0.64 (0.60-1.20) mg/dL Glucose 109 H (70-105) mg/dL Calcium 7.8 L (8.6-10.3) mg/dL Calcium panel 04/08/18 Range/Units 03:45 Calcium 7.8 L (8.6-10.3) mg/dL Pituitary panel 04/08/18 Range/Units 03:45 Sodium 138 (136-145) mEq/L Potassium 3.7 (3.5-5.1) mEq/L Chloride 110 H (98-107) mEq/L Carbon Dioxide 25 (23-29) mEq/L BUN 3 L (8-23) mg/dL Creatinine 0.64 (0.60-1.20) mg/dL Glucose 109 H (70-105) mg/dL Calcium 7.8 L (8.6-10.3) mg/dL Adrenal panel 04/08/18 Range/Units 03:45 Sodium 138 (136-145) mEq/L Potassium 3.7 (3.5-5.1) mEq/L Chloride 110 H (98-107) mEq/L Carbon Dioxide 25 (23-29) mEq/L BUN 3 L (8-23) mg/dL Creatinine 0.64 (0.60-1.20) mg/dL Glucose 109 H (70-105) mg/dL Calcium 7.8 L (8.6-10.3) mg/dL - VTE Documentation of Mechanical Device: Intermittent pneumatic compression device Consult Discharge Plan - Plan Referrals: Nilesh Unger MD [Primary Care Provider] - 04/12/18 11:30 am Jarrett Hansen MD [Partnered Physician] - (Spoke with Ashley at Dr. Hansen's office will call patient back with follow up appointment once she talks to Dr. Hansen. ) Prescriptions: Ciprofloxacin [Cipro] 500 mg PO BID 6 Days #12 tablet MetroNIDAZOLE [Flagyl ER] 750 mg PO BID 6 Days #12 tablet.er <Jame Rhodes Mile - Last Filed: 04/08/18 09:29> Date of Encounter: 04/08/18 - Assessment and Plan (1) BRBPR (bright red blood per rectum) Current Visit: Yes Status: Acute Objective Vital Signs - Last 8 Hours Temp Pulse Resp BP Pulse Ox 04/08/18 07:25 98.6 F 81 16 145/67 96 04/08/18 04:12 98.3 F 90 17 112/54 94 Intake and Output 04/07/18 04/08/18 04/08/18 23:59 07:59 15:59 Intake Total 874 / 874 200 / 200 Output Total 300 / 300 900 / 900 Balance 574 / 574 -700 / -700 Intake: IV Fluids 874 / 874 0.9 % Sodium Chloride 1,000 ML 574 / 574 @ 100 mls/hr IVC .Q10H ANGIE Rx#: [id number] Cipro Premix 400 MG/200 ML 400 200 / 200 mg In 200 ml @ 200 mls/hr IVPB Q12HR ANGIE Rx#:[id number] Flagyl Premix 500 MG/100 ML 500 100 / 100 mg In 100 ml @ 100 mls/hr IVPB Q8H ANGIE Rx#:[id number] Oral 0 / 0 200 / 200 Output: Urine 900 / 900 Urine/Stool Mix 300 / 300 Other: Meal 60 CC # Bowel Movements 0 Weight 73 kg Patient Weight 04/08/18 23:59 Weight 73 kg - Labs 04/08/18 03:45 04/08/18 03:45 Diabetes panel 04/08/18 Range/Units 03:45 Sodium 138 (136-145) mEq/L Potassium 3.7 (3.5-5.1) mEq/L Chloride 110 H (98-107) mEq/L Carbon Dioxide 25 (23-29) mEq/L BUN 3 L (8-23) mg/dL Creatinine 0.64 (0.60-1.20) mg/dL Glucose 109 H (70-105) mg/dL Calcium 7.8 L (8.6-10.3) mg/dL Calcium panel 04/08/18 Range/Units 03:45 Calcium 7.8 L (8.6-10.3) mg/dL Pituitary panel 04/08/18 Range/Units 03:45 Sodium 138 (136-145) mEq/L Potassium 3.7 (3.5-5.1) mEq/L Chloride 110 H (98-107) mEq/L Carbon Dioxide 25 (23-29) mEq/L BUN 3 L (8-23) mg/dL Creatinine 0.64 (0.60-1.20) mg/dL Glucose 109 H (70-105) mg/dL Calcium 7.8 L (8.6-10.3) mg/dL Adrenal panel 04/08/18 Range/Units 03:45 Sodium 138 (136-145) mEq/L Potassium 3.7 (3.5-5.1) mEq/L Chloride 110 H (98-107) mEq/L Carbon Dioxide 25 (23-29) mEq/L BUN 3 L (8-23) mg/dL Creatinine 0.64 (0.60-1.20) mg/dL Glucose 109 H (70-105) mg/dL Calcium 7.8 L (8.6-10.3) mg/dL - Attending Attestation I have personally seen and examined the patient. I have reviewed pertinent labs , imaging, progress notes, including this one. I agree with the above assessment and plan and wish to include the following... tolerating diet having bowel function no abdominal pain awaiting pathology no acute surgery; will call patient with pathology results general surgery will sign off; please call with any new questions or concerns
== END 2018-04-08 11:38 | disposition home or self-care (01) ==
LOC: 3ANU → MERGE 22:14
PROVIDERS: ADMIT Student in an Organized Health Care Education/Training Program; ATTEND Student in an Organized Health Care Education/Training Program
PROC: ENDOCBX (2018-04-07 08:00)